=== PATIENT | male | born 1955 | race African-American/Black ===

== ENCOUNTER → 2018-11-24 | Outpatient (CLI) | payer MEDICAID | LOC: M OUTALCOH 08:22 | PROVIDERS: ATTEND Psychiatry & Neurology Psychiatry | DX: F14.10 Cocaine abuse, uncomplicated (principal) ==

== ENCOUNTER 2018-12-12 13:00 | Outpatient (RCR) | payer MEDICAID | END 2018-12-14 | LOC: M OUTALCOH 13:00 | PROVIDERS: ATTEND Psychiatry & Neurology Psychiatry | DX: F14.20 Cocaine dependence, uncomplicated (principal); Z72.0 Tobacco use ==

== ENCOUNTER → 2019-01-13 | Outpatient (RCR) | payer MEDICAID | LOC: M OUTALCOH 12-19 14:10 | PROVIDERS: ATTEND Psychiatry & Neurology Psychiatry | DX: F14.20 Cocaine dependence, uncomplicated (principal); Z72.0 Tobacco use ==

== ENCOUNTER 2019-02-12 16:00 | Outpatient (RCR) | payer MEDICAID | END 2019-02-13 | LOC: M OUTALCOH 16:00 | PROVIDERS: ATTEND Psychiatry & Neurology Psychiatry | DX: F14.20 Cocaine dependence, uncomplicated (principal); Z72.0 Tobacco use ==

== ENCOUNTER 2019-03-13 08:54 | Outpatient (RCR) | payer MEDICAID | END 2019-03-15 | LOC: M OUTALCOH 08:54 | PROVIDERS: ATTEND Psychiatry & Neurology Psychiatry | DX: F14.20 Cocaine dependence, uncomplicated (principal); Z72.0 Tobacco use ==

== ENCOUNTER → 2019-04-15 | Outpatient (RCR) | payer MEDICAID | LOC: M OUTALCOH 03-18 16:33 | PROVIDERS: ATTEND Psychiatry & Neurology Psychiatry | DX: F14.20 Cocaine dependence, uncomplicated (principal); Z72.0 Tobacco use ==

== ENCOUNTER 2021-03-15 07:37 | Observation (INO) | payer MEDICARE, MEDICAID ==
[~2021-03-15] VITALS: Ht 175.3 cm; Wt 82.0 kg
[2021-03-15] MEDS ORDERED: ASPI-1 PO (07:52)
[2021-03-15] MEDS ORDERED: BP Med PO (07:52)
[2021-03-15 08:51] LABS: BASO % 0.4 % (0.0-1.0); EOS % 0.3 % (0.0-3.0); HEMATOCRIT 39.4 % (42.0-52.0); HEMOGLOBIN 13.5 g/dl (13.5-17.5); LYMPH # 1.4 10^3/uL (1.5-5.0); LYMPH % 19.5 % (24.0-44.0); MEAN CORPUSCULAR HEMOGLOBIN 30.9 pg (27.0-33.0); MEAN CORPUSCULAR HGB CONC 34.3 g/dl (32.0-36.5); MEAN CORPUSCULAR VOLUME 90.2 fl (80.0-96.0); MONO # 0.8 10^3/uL (0.0-0.8); MONO % 10.8 % (2.0-8.0); NEUTROPHILS # 4.8 10^3/uL (1.5-8.5); NEUTROPHILS % 68.6 % (36.0-66.0); PLATELET COUNT, AUTOMATED 150 10^3/uL (150-450); RED BLOOD COUNT 4.37 10^6/uL (4.30-6.10)
[2021-03-15 09:20] LABS: INR 1.06; PARTIAL THROMBOPLASTIN TIME 32.6 SECONDS (24.2-38.5)
[2021-03-15 09:23] LABS: ALT/SGPT 11 U/L (12-78); BILIRUBIN,DIRECT < 0.1 MG/DL (0.0-0.2); BILIRUBIN,TOTAL 0.4 MG/DL (0.2-1.0); BLOOD UREA NITROGEN 16 MG/DL (7-18); CALCIUM LEVEL 8.5 MG/DL (8.8-10.2); CARBON DIOXIDE LEVEL 22 MEQ/L (21-32); CHLORIDE LEVEL 111 MEQ/L (98-107); CK-MB VALUE MASS < 1.0 NG/ML (<3.6); CPK CREATINE PHOSPHOKINASE 75 U/L (39-308); CREATININE FOR GFR 1.27 MG/DL (0.70-1.30); GLOMERULAR FILTRATION RATE > 60.0 (>49); GLUCOSE, FASTING 86 MG/DL (70-100); LIPASE 99 U/L (73-393); MB/CK RELATIVE INDEX 1.33 (< OR =4); NT-PRO BNP 1107 PG/ML (<125); POTASSIUM SERUM 3.6 MEQ/L (3.5-5.1); SODIUM LEVEL 143 MEQ/L (136-145); TOTAL PROTEIN 6.8 GM/DL (6.4-8.2); TROPONIN I 0.03 NG/ML (< 0.10)
--- NOTE | 2021-03-15 09:23 | REP ---
INDICATION: leg pain r/o DVT. COMPARISON: None. TECHNIQUE: Bilateral lower extremity duplex venous scanning is performed from the groin to the ankle level. FINDINGS: In the left lower extremity, there is echogenic material and lack of complete compressibility in the left femoral vein from proximal through distal. This is consistent with nonocclusive thrombus. There is deep vein thrombosis also noted in the popliteal vein, nonocclusive. There is lack of complete compressibility in the peroneal veins in the proximal calf on the left.. In the right lower extremity, there is a small amount of nonocclusive thrombosis in the distal popliteal vein and there is lack of complete compressibility in the right peroneal veins in the calf.. Otherwise the deep veins are anechoic and fully compressible on two-dimensional scanning bilaterally. IMPRESSION: Study is positive for bilateral nonocclusive deep vein thrombosis involving the left femoral vein, bilateral popliteal veins, and bilateral peroneal veins. <Electronically signed by Ministerio Shaikh > 03/15/21 [id number]
[2021-03-15] MEDS ORDERED: ISOVUE-370 76% 100ML VIAL As Ordered ONE (09:30)
--- NOTE | 2021-03-15 10:00 | REP ---
INDICATION: pleuritic R chest pain, SOB COMPARISON: None. TECHNIQUE: CT angiography of the chest after the intravenous administration of 75 cc of Isovue 370 attention pulmonary arteries. FINDINGS: There is excellent visualization of the pulmonary arterial vasculature. Abnormal focal filling defects are seen in each right and left main pulmonary artery. Additional abnormal focal filling defects are seen throughout multiple upper and lower lobe pulmonary arteries. No abnormal defect is seen in the main pulmonary artery. There is no saddle embolus. There is no mediastinal or hilar adenopathy. There is a small right pleural effusion. The imaged upper abdomen and imaged osseous structures are within normal limits. Evaluation of the lung stewart shows scattered asymmetric and ground-glass opacities throughout both lungs. Lung stewart are hypoexpanded accentuating the finding. Bilateral curvilinear densities are also seen particularly in the lower lobe regions. IMPRESSION: 1. Pulmonary emboli as described above. This was discussed with Dr. Dillon Florez at the time of this exam. 2. Lung field findings as described above. Patchy pneumonia cannot be ruled out. There are no priors comparison. Follow-up is recommended. Critical Findings: Large bilateral pulmonary emboli The critical information above was relayed directly by me by telephone to DILLON FLOREZ on 03/15/2021 at 9:56 am with readback verification. <Electronically signed by Arian Winkler > 03/15/21 [id number]
[2021-03-15] MEDS ORDERED: HEPARIN SOD (PORCINE) 5000UNITS/ML 1ML VIAL/SYRINGE IV ONE (10:05)
[2021-03-15] MEDS ORDERED: HEPARIN DRIP 25,000 UNITS in IV 1 EA IV SCH (10:05)
[2021-03-15] MEDS ORDERED: LISI10TA22 PO (11:52)
[2021-03-15] MEDS ORDERED: ASPI1TAB8 PO (11:52)
[2021-03-15] MEDS ORDERED: AMLO1TAB25 PO (11:52)
[2021-03-15] MEDS: APIXABAN 5 MG TAB (ELIQUIS) PO SCH ×2 (12:46→20:02)
[2021-03-15 13:11] VITALS: BP 150/78
[2021-03-15 13:26] LABS: AMPHETAMINES LEVEL URINE NEGATIVE (NEGATIVE); BARBITURATES URINE NEGATIVE (NEGATIVE); BENZODIAZEPINES URINE NEGATIVE (NEGATIVE); CANNABINOIDS URINE NEGATIVE (NEGATIVE); COCAINE METABOLITE URINE POSITIVE (NEGATIVE); METHADONE URINE NEGATIVE (NEGATIVE); OPIATES URINE NEGATIVE (NEGATIVE); PHENCYCLIDINE URINE NEGATIVE (NEGATIVE)
--- NOTE | 2021-03-15 16:18 | HPEPDOC ---
General Date of Admission Mar 15, 2021 at 12:06 Date of Service: Mar 15, 2021 Chief Complaint The patient is a 65-year-old male admitted with a reason for visit of Pulmonary Embolism. History of Present Illness 67 y/o M came to ER c/o worsening left thigh area pain, mild shortness of breath and mild intermittent chest pain for past 5 days, no specific aggravating or relieving factor. In ER pt was found with vitals of BP 191/91 that improved after getting home medication Amlodipine/lisinopril to 161/98, HR 78, RR 16, SpO2- 90% on RA; EKG- LBBB, Troponin x 1 negative, CTA- PE, US lower extremities- b/l DVT; pt was started on iv heparin gtt. Hospitalist service was consulted to admit the patient for further management. Pt was seen and examined at bedside in ER. Pt was resting comfortably in bed. Pt c/o mild left thigh area pain. Home Medications Scheduled Amlodipine Besylate (Amlodipine Besylate) 10 Mg Tablet, 10 MG PO DAILY, (Reported) Aspirin (Aspirin EC) 81 Mg Tablet.dr, 81 MG PO DAILY, (Reported) Lisinopril (Lisinopril) 10 Mg Tablet, 10 MG PO DAILY, (Reported) Allergies Coded Allergies: No Known Allergies (Unverified , 03/15/21) Past Medical History Medical History HTN, GERD Surgical History multiple left foot surgery, s/p left 5th toe amputation Family History Father at age 89- no health issues Mother at age 98 due to complications of unknown cancer. Social History * Smoker: current smoker Alcohol: occationally occasionally snorts cocaine A-FIB/CHADSVASC A-FIB History Current/History of A-Fib/PAF?: No Current PO Anticoag Therapy: No Review of Systems Constitutional: Denies: Fever Eyes: Denies: Vision change ENT: Denies: Head Aches Skin: Denies: Lesions Pulmonary: Denies: Cough Cardiovascular: Denies: Palpitations Gastrointestinal: Denies: Nausea Genitourinary: Denies: Frequency Hematologic: Denies: Bleeding Excessively Endocrine: Denies: Polyuria Musculoskeletal: Denies: Back Pain Neurological: Denies: Numbness Psych: Denies: Anxiety Physical Examination General Exam: Positive: Alert, Cooperative, No Acute Distress Eye Exam: Positive: PERRLA ENT Exam: Positive: Atraumatic, Mucous membr. moist/pink Neck Exam: Positive: Supple Chest Exam: Positive: Clear to auscultation Heart Exam: Positive: Rate Normal Abdomen Exam: Positive: Normal bowel sounds Extremity Exam: Negative: Edema Skin Exam: Negative: Rash Neuro Exam: Positive: Normal Gait, Normal Speech, Strength at 5/5 X4 ext Psych Exam: Positive: Mood NL Vital Signs Vital Signs Date Time Temp Pulse Resp B/P (MAP) Pulse Ox O2 Delivery O2 Flow Rate FiO2 03/15/21 12:47 98.8 74 22 161/98 (119) 92 Nasal Cannula 2.0 Laboratory Data Labs 24H Laboratory Tests 2 03/15/21 08:21: Immature Granulocyte % (Auto) 0.4, Neutrophils (%) (Auto) 68.6H, Lymphocytes (%) (Auto) 19.5L, Monocytes (%) (Auto) 10.8H, Eosinophils (%) (Auto) 0.3, Basophils (%) (Auto) 0.4, Neutrophils # (Auto) 4.8, Lymphocytes # (Auto) 1.4L, Monocytes # (Auto) 0.8, Eosinophils # (Auto) 0.0, Basophils # (Auto) 0.0, Nucleated Red Blood Cells % (auto) 0.0, Prothrombin Time 14.0, Prothromb Time International Ratio 1.06, Activated Partial Thromboplast Time 32.6, Anion Gap 10, Glomerular Filtration Rate > 60.0, Calcium Level 8.5L, Total Bilirubin 0.4, Direct Bilirubin < 0.1, Aspartate Amino Transf (AST/SGOT) 12, Alanine Aminotransferase (ALT/SGPT) 11L, Alkaline Phosphatase 98, Total Creatine Kinase 75, Creatine Kinase MB < 1.0, Creatine Kinase MB Relative Index 1.33, Troponin I 0.03, NT -Pro-B-Type Natriuretic Peptide 1107H, Total Protein 6.8, Albumin 3.0L, Albumin/Globulin Ratio 0.8, Lipase 99, Thyroid Stimulating Hormone (TSH) 1.490 03/15/21 12:45: Urine Opiates Screen NEGATIVE, Urine Methadone Screen NEGATIVE, Urine Barbiturates Screen NEGATIVE, Urine Phencyclidine Screen NEGATIVE, Urine Amphetamines Screen NEGATIVE, Urine Benzodiazepines Screen NEGATIVE, Urine Cocaine Metabolite Screen POSITIVEH, Urine Cannabinoids Screen NEGATIVE 03/15/21 13:04: Troponin I 0.05# CBC/BMP Laboratory Tests 03/15/21 08:21 Microbiology Microbiology 03/15/21 Respiratory Virus Panel (PCR) ([facility]) - Final, Complete Assessment/Plan 80 y/o M initially came to ER c/o mild shortness of breath, intermittent chest pain and left thigh area pain, found to have PE and DVT. Labs and imaging studies reviewed US- bilateral nonocclusive deep vein thrombosis involving the left femoral vein, bilateral popliteal veins, and bilateral peroneal veins. Impression- PE and b/l lower extremities DVT Plan 1. PE and b/l lower extremities DVT CTA did not show saddle PE will start on PO Eliquis 10 mg bid will f/u ECHO o/p hematology eval 2. HTN pt stated that his BP usually run high but could not tell us the exact numbers will continue home medication Amlodipine increased the dose of home medication Lisinopril to 20 mg once daily will monitor BP closely 3. Cocaine abuse pt was counselled about substance abuse telemetry will f/u repeat troponin in view of c/o intermittent chest pain pt stated that he snorted cocaine few days ago. Most probably chest pain was due to PE 4. h/o GERD home meds 5. Abnormal EKG LBBB no prior EKG available to compare no sign and symptoms suggestive of ACS will f/u repeat troponin telemetry o/p cardiology referral as per PMD discretion Plan / VTE VTE Prophylaxis Ordered?: Yes JAYNA MARTINEZ MD Mar 15, 2021 16:18
[2021-03-15] MEDS: ACETAMINOPHEN TAB 650MG DOSE (2X325MG) PO PRN (20:03)
[2021-03-15 22:00] VITALS: BP 135/73
[2021-03-16 06:00] VITALS: BP 151/78
[2021-03-16 06:04] LABS: HEMATOCRIT 39.7 % (42.0-52.0); HEMOGLOBIN 13.5 g/dl (13.5-17.5); MEAN CORPUSCULAR HEMOGLOBIN 30.8 pg (27.0-33.0); MEAN CORPUSCULAR VOLUME 90.6 fl (80.0-96.0); PLATELET COUNT, AUTOMATED 156 10^3/uL (150-450); RED BLOOD COUNT 4.38 10^6/uL (4.30-6.10); WHITE BLOOD COUNT 7.1 10^3/uL (4.0-10.0)
[2021-03-16 06:32] LABS: ALBUMIN 2.9 GM/DL (3.2-5.2); ALT/SGPT 13 U/L (12-78); BILIRUBIN,TOTAL 0.6 MG/DL (0.2-1.0); BLOOD UREA NITROGEN 17 MG/DL (7-18); CALCIUM LEVEL 8.5 MG/DL (8.8-10.2); CARBON DIOXIDE LEVEL 28 MEQ/L (21-32); CHLORIDE LEVEL 110 MEQ/L (98-107); CREATININE FOR GFR 1.45 MG/DL (0.70-1.30); GLOMERULAR FILTRATION RATE > 60.0 (>49); GLUCOSE, FASTING 88 MG/DL (70-100); POTASSIUM SERUM 3.6 MEQ/L (3.5-5.1); SODIUM LEVEL 144 MEQ/L (136-145); TOTAL PROTEIN 6.7 GM/DL (6.4-8.2)
[2021-03-16] MEDS: ASPIRIN 81MG ENTERIC TABLET PO SCH (09:27)
[2021-03-16] MEDS: APIXABAN 5 MG TAB (ELIQUIS) PO SCH ×2 (09:27→19:56)
--- NOTE | 2021-03-16 11:38 | IPNPDOC ---
Subjective Date Seen The patient was seen on 03/16/21. Subjective Chief Complaint/HPI Denies any SOB at rest or ambulation to the bathroom. Still has some soreness int he left thigh. Objective Physical Examination General Exam: Positive: Alert, Cooperative, No Acute Distress Eye Exam: Positive: PERRLA, Conjunctiva & lids normal ENT Exam: Positive: Atraumatic, Mucous membr. moist/pink Neck Exam: Positive: Supple Chest Exam: Positive: Clear to auscultation, Normal air movement Heart Exam: Positive: Rate Normal, Regular Rhythm, Normal S1, Normal S2; Negative: Murmurs, Rubs Telemetry: Positive: No significant arrhythmia Abdomen Exam: Positive: Normal bowel sounds, Soft; Negative: Tenderness, Hepatospenomegaly Extremity Exam: Positive: Clubbing, Cyanosis, Edema, Tenderness (thigh) Skin Exam: Negative: Rash Neuro Exam: Positive: Normal Gait, Normal Speech, Strength at 5/5 X4 ext Psych Exam: Positive: Mood NL, Memory Intact, Oriented x 3 Assessment /Plan Assessment 80 y/o M came to ER c/o mild shortness of breath, intermittent chest pain and left thigh area pain, found to have Pulmonary embolism and bilateral DVT. CTA of chest showed . Abnormal focal filling defects are seen in each right and left main pulmonary artery. Additional abnormal focal filling defects are seen throughout multiple upper and lower lobe pulmonary arteries. No abnormal defect is seen in the main pulmonary artery. There is no saddle embolus. US- bilateral nonocclusive deep vein thrombosis involving the left femoral vein, bilateral popliteal veins, and bilateral peroneal veins. PE and b/l lower extremities DVT Eliquis 10 mg bid, stop ASA Hypercoagulable work up ordered. will f/u ECHO Bed rest with bathroom privileges. HTN continue amlodipine and lisinopril at home dosages. Cocaine abuse pt was counselled about substance abuse pt stated that he snorted cocaine few days ago. Most probably chest pain was due to PE cardiac enzymes negative. GERD home meds Abnormal EKG LBBB no prior EKG available to compare no sign and symptoms suggestive of ACS cardiac enzymes negative Plan/VTE VTE Prophylaxis Ordered?: Yes VS, I&O, 24H, Fishbone Vital Signs/I&O Vital Signs Date Time Temp Pulse Resp B/P (MAP) Pulse Ox O2 Delivery O2 Flow Rate FiO2 03/16/21 09:27 67 151/78 03/16/21 06:00 97.4 17 92 Nasal Cannula 2.0 I&O- Last 24 Hours up to 6 AM 03/16/21 06:00 Intake Total 1439.5 ml Output Total 0 ml Balance 1439.5 ml Laboratory Data 24H LABS Laboratory Tests 2 03/15/21 12:45: Urine Opiates Screen NEGATIVE, Urine Methadone Screen NEGATIVE, Urine Barbiturates Screen NEGATIVE, Urine Phencyclidine Screen NEGATIVE, Urine Amphetamines Screen NEGATIVE, Urine Benzodiazepines Screen NEGATIVE, Urine Cocaine Metabolite Screen POSITIVEH, Urine Cannabinoids Screen NEGATIVE 03/15/21 13:04: Troponin I 0.05# 03/16/21 05:47: Nucleated Red Blood Cells % (auto) 0.0, Anion Gap 6L, Glomerular Filtration Rate > 60.0, Calcium Level 8.5L, Total Bilirubin 0.6, Aspartate Amino Transf (AST/SGOT) 12, Alanine Aminotransferase (ALT/SGPT) 13, Alkaline Phosphatase 94, Total Protein 6.7, Albumin 2.9L, Albumin/Globulin Ratio 0.8 CBC/BMP Laboratory Tests 03/16/21 05:47 Microbiology Microbiology 03/15/21 Respiratory Virus Panel (PCR) ([facility]) - Final, Complete NANCY MCDONALD MD Mar 16, 2021 11:38
[2021-03-16 14:00] VITALS: BP 173/99
[2021-03-16 15:57] VITALS: BP 142/78
[2021-03-16] MEDS: ACETAMINOPHEN TAB 650MG DOSE (2X325MG) PO PRN (19:57)
[2021-03-16 22:00] VITALS: BP 131/75
--- NOTE | 2021-03-17 00:18 | ECHO ---
ECHOCARDIOGRAM DATE OF PROCEDURE: 03/16/2021 Age: 65 Gender: Male Height: 69 inches Weight: 180 pounds Body surface area: 1.98 m2 PATIENT LOCATION: [facility] Room 4210 REFERRING PHYSICIAN: Dr. Kin Zelaya INDICATION: Dyspnea MEASUREMENTS: 2D Measurements: RV 4.2 cm LV 5.0 cm Septum 1.3 cm Posterior wall 1.3 cm Aortic Root 3.6 cm LA 3.7 cm LVEF 45% Doppler Measurements: AV 2.25 m/s LVOT - 0.99 m/s LVOT diameter 2.1 cm Mean AV gradient 11 mmHg Dimensionless index 0.5 MV-E 81, A 69, EA ratio 1.2 Early mitral deceleration time 277 msec E prime medial 5.3, A prime medial 8, E prime lateral 5.2 Average E/E prime ratio 15.4/PCWP 21 mmHg PV 1.0 msec Pulmonary artery acceleration time 79 msec RVSP 49 mmHg IVC 1.9 cm COMMENTS: Normal sinus rhythm with left bundle branch block. Occasional PACs with one observed atrial triplet. M-mode and 2-dimensional echocardiography was performed with pulse, continuous wave, color flow, and tissue Doppler studies. Mild symmetrical left ventricular hypertrophy with septal paradoxical motion and apical akinesis related to left bundle branch block. At least mild impairment of global systolic function. Left atrial size upper limits of normal with grade 2 LV diastolic dysfunction and elevated estimated mean left atrial pressure. Mildly dilated right heart chambers with no wall motion and Doppler evidence of at least moderate pulmonary hypertension. Normal IVC size and collapse against an elevated central venous pressure. Normal aortic diameters. Moderate asymmetrical thickening of the aortic valve three equal size cusps with fairly localized nodular thickening of the left coronary cusp. Could not rule out a sessile vegetation with certainty. No more than borderline aortic stenosis, but mild insufficiency. Slightly thickened mitral valvular apparatus with normal leaflet excursion and no posterior systolic buckling. Mild insufficiency. Normal appearing tricuspid valve with mild to moderate insufficiency. No separate intracardiac mass or pericardial effusion. It would be prudent to consider a complete blood count, sediment rate and two sets of blood cultures by 12 hours to help rule out endocarditis.
--- NOTE | 2021-03-17 05:37 | ECGEPIP ---
[facility] - ED Test Date: 2021-03-15 Pat Name: SWETHA HEART Department: Room: - Gender: Male It Systems Administrator: LR : [id number] Requested By: DILLON Tobar Order Number: [id number] Reading MD: Néstor Hubbard Measurements Intervals War Rate: 99 P: [place]: QRS: -2 QRSD: 152 T: 189 QT: 320 QTc: 410 Interpretive Statements Sinus rhythm with frequent premature supraventricular complexes with atrial triplets Left bundle branch block NO PRIORS FOR COMPARISON Electronically Signed on 03-17-2021 5:37:16 EDT by Néstor Hubbard
[2021-03-17 06:00] VITALS: BP 123/85
[2021-03-17] MEDS: ASPIRIN 81MG ENTERIC TABLET PO SCH (09:06)
[2021-03-17] MEDS: APIXABAN 5 MG TAB (ELIQUIS) PO SCH (09:07)
[2021-03-17 09:09] VITALS: BP 136/69
[2021-03-17 10:30] LABS: BASO % 0.3 % (0.0-1.0); EOS % 0.5 % (0.0-3.0); HEMATOCRIT 40.8 % (42.0-52.0); HEMOGLOBIN 13.9 g/dl (13.5-17.5); LYMPH # 1.4 10^3/uL (1.5-5.0); LYMPH % 21.1 % (24.0-44.0); MEAN CORPUSCULAR HEMOGLOBIN 30.9 pg (27.0-33.0); MEAN CORPUSCULAR HGB CONC 34.1 g/dl (32.0-36.5); MEAN CORPUSCULAR VOLUME 90.7 fl (80.0-96.0); MONO # 0.5 10^3/uL (0.0-0.8); MONO % 7.6 % (2.0-8.0); NEUTROPHILS # 4.6 10^3/uL (1.5-8.5); NEUTROPHILS % 70.3 % (36.0-66.0); PLATELET COUNT, AUTOMATED 182 10^3/uL (150-450); WHITE BLOOD COUNT 6.6 10^3/uL (4.0-10.0)
[2021-03-17 10:53] LABS: BLOOD UREA NITROGEN 16 MG/DL (7-18); CARBON DIOXIDE LEVEL 26 MEQ/L (21-32); CHLORIDE LEVEL 109 MEQ/L (98-107); CREATININE FOR GFR 1.31 MG/DL (0.70-1.30); GLOMERULAR FILTRATION RATE > 60.0 (>49); GLUCOSE, FASTING 112 MG/DL (70-100); POTASSIUM SERUM 3.7 MEQ/L (3.5-5.1); SODIUM LEVEL 145 MEQ/L (136-145)
[2021-03-17] MEDS ORDERED: ELIQ5TAB PO (12:42)
--- NOTE | 2021-03-17 14:07 | IPNPDOC ---
Subjective Date Seen The patient was seen on 03/17/21. Subjective Chief Complaint/HPI No complaints this morning. Spoke with PMD Dr Dhillon and apprised him about the echo results and faxed over the echo to his office. He is going to follow up on the hypercoagulable work up. Objective Physical Examination General Exam: Positive: Alert, Cooperative, No Acute Distress Eye Exam: Positive: PERRLA, Conjunctiva & lids normal ENT Exam: Positive: Atraumatic, Mucous membr. moist/pink Neck Exam: Positive: Supple Chest Exam: Positive: Clear to auscultation, Normal air movement Heart Exam: Positive: Rate Normal, Regular Rhythm, Normal S1, Normal S2; Negative: Murmurs, Rubs Telemetry: Positive: No significant arrhythmia Abdomen Exam: Positive: Normal bowel sounds, Soft; Negative: Tenderness, Hepatospenomegaly Extremity Exam: Positive: Clubbing, Cyanosis, Edema, Tenderness (thigh) Skin Exam: Negative: Rash Neuro Exam: Positive: Normal Gait, Normal Speech, Strength at 5/5 X4 ext Psych Exam: Positive: Mood NL, Memory Intact, Oriented x 3 Assessment /Plan Assessment 65 y/o M came to ER c/o mild shortness of breath, intermittent chest pain and left thigh area pain, found to have Pulmonary embolism and bilateral DVT. CTA of chest showed Abnormal focal filling defects are seen in each right and left main pulmonary artery. Additional abnormal focal filling defects are seen throughout multiple upper and lower lobe pulmonary arteries. No abnormal defect is seen in the main pulmonary artery. There is no saddle embolus. US- bilateral nonocclusive deep vein thrombosis involving the left femoral vein, bilateral popliteal veins, and bilateral peroneal veins. PE and b/l lower extremities DVT Eliquis 10 mg bid, stop ASA Hypercoagulable work up ordered. Systolic CHF with EF of 45% compensated at this time. Echo faxed over to PMD Dr Dhillon who will send him to the [place] it service delivery manager. 2D Measurements: RV 4.2 cm LV 5.0 cm Septum 1.3 cm Posterior wall 1.3 cm Aortic Root 3.6 cm LA 3.7 cm LVEF 45% Doppler Measurements: AV 2.25 m/s LVOT - 0.99 m/s LVOT diameter 2.1 cm Mean AV gradient 11 mmHg Dimensionless index 0.5 MV-E 81, A 69, EA ratio 1.2 Early mitral deceleration time 277 msec E prime medial 5.3, A prime medial 8, E prime lateral 5.2 Average E/E prime ratio 15.4/PCWP 21 mmHg PV 1.0 msec Pulmonary artery acceleration time 79 msec RVSP 49 mmHg IVC 1.9 cm COMMENTS: Normal sinus rhythm with left bundle branch block. Occasional PACs with one observed atrial triplet. M-mode and 2-dimensional echocardiography was performed with pulse, continuous wave, color flow, and tissue Doppler studies. Mild symmetrical left ventricular hypertrophy with septal paradoxical motion and apical akinesis related to left bundle branch block. At least mild impairment of global systolic function. Left atrial size upper limits of normal with grade 2 LV diastolic dysfunction and elevated estimated mean left atrial pressure. Mildly dilated right heart chambers with no wall motion and Doppler evidence of at least moderate pulmonary hypertension. Normal IVC size and collapse against an elevated central venous pressure. Normal aortic diameters. Moderate asymmetrical thickening of the aortic valve three equal size cusps with fairly localized nodular thickening of the left coronary cusp. Could not rule out a sessile vegetation with certainty. No more than borderline aortic stenosis, but mild insufficiency. Slightly thickened mitral valvular apparatus with normal leaflet excursion and no posterior systolic buckling. Mild insufficiency. Normal appearing tricuspid valve with mild to moderate insufficiency. No separate intracardiac mass or pericardial effusion. It would be prudent to consider a complete blood count, sediment rate and two sets of blood cultures by 12 hours to help rule out endocarditis. As per the it service delivery manager's recommendation blood culture was ordered. will follow up HTN with [facility]. continue amlodipine and lisinopril at home dosages. Cocaine abuse / cocaine related cornary spasm with negative cardiac cath. pt was counselled about substance abuse pt stated that he snorted cocaine few days ago. Most probably chest pain was due to PE cardiac enzymes negative. GERD home meds Abnormal EKG LBBB no prior EKG available to compare no sign and symptoms suggestive of ACS cardiac enzymes negative Dispo: Home. Plan/VTE VTE Prophylaxis Ordered?: Yes VS, I&O, 24H, Fishbone Vital Signs/I&O Vital Signs Date Time Temp Pulse Resp B/P (MAP) Pulse Ox O2 Delivery O2 Flow Rate FiO2 03/17/21 09:09 80 136/69 03/17/21 06:00 97.9 17 93 Room Air 03/16/21 22:00 1.0 I&O- Last 24 Hours up to 6 AM 03/17/21 05:59 Intake Total 1587 ml Balance 1587 ml Laboratory Data 24H LABS Laboratory Tests 2 03/17/21 09:54: Immature Granulocyte % (Auto) 0.2, Neutrophils (%) (Auto) 70.3H, Lymphocytes (%) (Auto) 21.1L, Monocytes (%) (Auto) 7.6, Eosinophils (%) (Auto) 0.5, Basophils (%) (Auto) 0.3, Neutrophils # (Auto) 4.6, Lymphocytes # (Auto) 1.4L, Monocytes # (Auto) 0.5, Eosinophils # (Auto) 0.0, Basophils # (Auto) 0.0, Nucleated Red Blood Cells % (auto) 0.0, Anion Gap 10, Glomerular Filtration Rate > 60.0, Calcium Level 9.0 CBC/BMP Laboratory Tests 03/17/21 09:54 Microbiology Microbiology 03/17/21 Blood Culture, Received Pending 03/17/21 Blood Culture, Received Pending 03/15/21 Respiratory Virus Panel (PCR) ([facility]) - Final, Complete NANCY MCDONALD MD Mar 17, 2021 14:07
[2021-03-18] MEDS ORDERED: ELIQ5TAB PO (11:44)
[2021-03-22 09:56] LABS: DRVV SCREEN 115.8 SEC
[2021-03-22 10:20] LABS: DRVV CONFIRM 75.3 SEC; LUPUS CONFIRM RATIO 2.1
[2021-03-22 10:25] LABS: NORMALIZED RATIO 1.43 (0.00-1.20)
[2021-03-22 11:08] LABS: ANCA-ATYPICAL <1:20 titer (Neg:<1:20); ANTI THROMBIN 3 ANTIGEN IMMUNO 93 % (72-124); ANTI THROMBIN 3 FUNCT ACTIVITY 146 % (75-135); ANTINUCLEAR ANTIBODIES DIRECT Negative (Negative); CARDIOLIPIN IGA ANTIBODY <9 APL U/mL (0-11); CARDIOLIPIN IGG ANTIBODY <9 GPL U/mL (0-14); CARDIOLIPIN IGM ANTIBODY <9 MPL U/mL (0-12); CYTOPLASMIC NEUTROP AB ANCA-C <1:20 titer (Neg:<1:20); HOMOCYST(E)INE SERUM 12.2 umol/L (0.0-17.2); PERINUCLEAR AB ANCA-P <1:20 titer (Neg:<1:20); PROTEIN C ANTIGEN 72 % (60-150); PROTEIN S ANTIGEN FREE 158 % (57-157); PROTEIN S ANTIGEN TOTAL 105 % (60-150); SJOGREN'S ANTI SS-A <0.2 AI (0.0-0.9); SJOGREN'S ANTI SS-B <0.2 AI (0.0-0.9)
[2021-03-25 15:09] LABS: HEXAGONAL PHASE PHOSPHOLIPID 0 sec (0-11)
== END 2021-03-17 13:59 | disposition home or self-care (01) ==
LOC: M ED 07:37 → M ED INP 12:06 → ENRESERV 12:08 → M MSPAV 13:11
PROVIDERS: ADMIT Internal Medicine; ATTEND Internal Medicine
DX: I26.99 Other pulmonary embolism without acute cor pulmonale (principal); I82.403 Acute embolism and thrombosis of unspecified deep veins of lower extremity, bilateral; I50.20 Unspecified systolic (congestive) heart failure; K21.9 Gastro-esophageal reflux disease without esophagitis; I11.9 Hypertensive heart disease without heart failure; R94.31 Abnormal electrocardiogram [ECG] [EKG]; R06.02 Shortness of breath; R07.9 Chest pain, unspecified; F17.218 Nicotine dependence, cigarettes, with other nicotine-induced disorders; F14.10 Cocaine abuse, uncomplicated; Z79.01 Long term (current) use of anticoagulants; Z79.899 Other long term (current) drug therapy
CPT/HCPCS: 36415; 71275; 80048; 80053; 80076; 80307; 81240; 81241; 82550; 82553; 83090; 83690; 83880; 84443; 84484; 85025; 85027; 85300; 85301; 85302; 85305; 85306; 85598; 85610; 85613; 85730; 86038; 86147; 86235; 86256; 87040; 87798; 93005; 93041; 93306; 93970; 94760; 96361; 96374; 99285; G0378; J1644; Q9967

== ENCOUNTER 2022-06-28 16:15 | Emergency (ER) | payer MEDICARE, MEDICAID ==
[~2022-06-28] VITALS: Ht 175.3 cm; Wt 82.2 kg
[~2022-06-28 16:15] MED LIST: AMLO1TAB25 PO; ASPI-1 PO; ASPI1TAB8 PO; BP Med PO; ELIQ5TAB PO; LISI10TA22 PO
[2022-06-28 16:16] VITALS: BP 146/74
== END 2022-06-28 17:30 | disposition left against medical advice (07) ==
LOC: M ED 16:15
DX: Z53.21 Procedure and treatment not carried out due to patient leaving prior to being seen by health care provider (principal)

== ENCOUNTER 2022-09-21 08:29 | Emergency (ER) | payer MEDICARE, MEDICAID ==
[~2022-09-21] VITALS: Ht 182.9 cm; Wt 85.1 kg
[2022-09-21 08:30] VITALS: BP 123/65
== END 2022-09-21 12:01 | disposition left against medical advice (07) ==
LOC: M ED 08:29
DX: Z53.21 Procedure and treatment not carried out due to patient leaving prior to being seen by health care provider (principal)

== ENCOUNTER 2022-10-02 07:45 | Emergency (ER) | payer MEDICARE, MEDICAID ==
[~2022-10-02] VITALS: Ht 182.9 cm; Wt 85.9 kg
[2022-10-02 09:32] LABS: BASO # 0.1 10^3/uL (0.0-0.2); BASO % 0.8 % (0.0-1.0); EOS # 0.3 10^3/uL (0.0-0.5); EOS % 4.4 % (0.0-3.0); HEMATOCRIT 42.4 % (42.0-52.0); HEMOGLOBIN 13.9 g/dl (13.5-17.5); LYMPH % 32.6 % (24.0-44.0); MEAN CORPUSCULAR HEMOGLOBIN 30.2 pg (27.0-33.0); MEAN CORPUSCULAR HGB CONC 32.8 g/dl (32.0-36.5); MONO # 0.6 10^3/uL (0.0-0.8); MONO % 10.2 % (2.0-8.0); NEUTROPHILS # 3.2 10^3/uL (1.5-8.5); NEUTROPHILS % 51.8 % (36.0-66.0); PLATELET COUNT, AUTOMATED 201 10^3/uL (150-450); RED BLOOD COUNT 4.61 10^6/uL (4.30-6.10); WHITE BLOOD COUNT 6.2 10^3/uL (4.0-10.0)
[2022-10-02 09:43] LABS: INR 0.96
[2022-10-02 09:56] LABS: BLOOD UREA NITROGEN 13 MG/DL (9-23); CALCIUM LEVEL 9.2 MG/DL (8.3-10.6); CARBON DIOXIDE LEVEL 27 MMOL/L (20-31); CHLORIDE LEVEL 107 MMOL/L (98-107); CREATININE FOR GFR 1.32 MG/DL (0.70-1.30); GLOMERULAR FILTRATION RATE > 60.0 (>49); GLUCOSE, FASTING 88 MG/DL (74-106); POTASSIUM SERUM 5.9 MMOL/L (3.5-5.1); SODIUM LEVEL 139 MMOL/L (136-145)
[2022-10-02 10:33] LABS: ERYTHROCYTE SEDIMENTATION RATE 46 mm/hr (0-20)
[2022-10-02] MEDS ORDERED: ISOVUE-370 76% 100ML VIAL As Ordered ONE (10:54)
[2022-10-02] MEDS ORDERED: ELIQ5TAB PO (11:24)
[2022-10-02 11:36] VITALS: BP 167/79
== END 2022-10-02 11:43 | disposition home or self-care (01) ==
LOC: M ED 07:45
DX: I82.4Z2 Acute embolism and thrombosis of unspecified deep veins of left distal lower extremity (principal); I10 Essential (primary) hypertension; Z87.891 Personal history of nicotine dependence; Z79.899 Other long term (current) drug therapy
CPT/HCPCS: 71275; 80048; 85025; 85610; 85652; 86140; 93971; 99284; Q9967

== ENCOUNTER 2024-10-16 15:37 | Inpatient (IN) | payer MEDICARE, MEDICAID ==
[~2024-10-16] VITALS: Ht 182.9 cm; Wt 82.1 kg
[2024-10-16 16:22] LABS: BASO % 0.3 % (0.0-1.0); EOS % 0.5 % (0.0-3.0); HEMATOCRIT 45.6 % (42.0-52.0); HEMOGLOBIN 15.8 g/dl (13.5-17.5); LYMPH # 1.5 10^3/uL (1.5-5.0); LYMPH % 16.9 % (24.0-44.0); MEAN CORPUSCULAR HEMOGLOBIN 31.6 pg (27.0-33.0); MEAN CORPUSCULAR HGB CONC 34.6 g/dl (32.0-36.5); MEAN CORPUSCULAR VOLUME 91.2 fl (80.0-96.0); MONO # 0.7 10^3/uL (0.0-0.8); MONO % 8.1 % (2.0-8.0); NEUTROPHILS # 6.4 10^3/uL (1.5-8.5); NEUTROPHILS % 73.9 % (36.0-66.0); PLATELET COUNT, AUTOMATED 229 10^3/uL (150-450); WHITE BLOOD COUNT 8.6 10^3/uL (4.0-10.0)
[2024-10-16 16:35] VITALS: TEMP 98.6
[2024-10-16 16:40] LABS: INR 1.19; PARTIAL THROMBOPLASTIN TIME 29.5 SECONDS (24.8-34.2); PROTHROMBIN TIME 15.4 SECONDS (12.5-14.5)
[2024-10-16 16:45] LABS: ABG BASE EXCESS -6.7 (-2.0-2.0); ABG HCO3 17.4 MMOL/L (22.0-26.0); ABG O2 SATURATION 93.6 % (95.0-99.0); ABG PARTIAL PRESSURE CO2 31.1 mmHg (35.0-45.0); ABG PARTIAL PRESSURE O2 76.4 mmHg (75.0-100.0); ABG TOTAL CO2 18.3 MMOL/L (23.0-31.0); ABG pH (ARTERIAL) 7.365 UNITS (7.350-7.450)
[2024-10-16 16:52] LABS: ETHYL ALCOHOL (ETHANOL) < 0.003 % (0.000-0.010); LIPASE 41 U/L (12-53)
[2024-10-16 16:54] LABS: SALICYLATE LEVEL < 3.0 MG/DL (<30)
[2024-10-16 16:55] LABS: ALBUMIN 3.7 G/DL (3.2-5.2); ALKALINE PHOSPHATASE 98 U/L (40-129); ALT/SGPT 21 U/L (7.0-40); AST/SGOT 49 U/L (<34); BILIRUBIN,DIRECT 0.4 MG/DL (<0.4); BILIRUBIN,TOTAL 1.2 MG/DL (0.3-1.2); BLOOD UREA NITROGEN 33 MG/DL (9-23); CARBON DIOXIDE LEVEL 23 MMOL/L (20-31); CHLORIDE LEVEL 111 MMOL/L (98-107); CREATININE FOR GFR 1.88 MG/DL (0.70-1.30); GLUCOSE, FASTING 96 MG/DL (74-106); POTASSIUM SERUM 3.6 MMOL/L (3.5-5.1); SODIUM LEVEL 149 MMOL/L (136-145); TOTAL PROTEIN 7.6 G/DL (5.7-8.2)
[2024-10-16 16:57] LABS: FREE T4 1.41 NG/DL (0.89-1.76); THYROID STIMULATING HORMONE 2.474 uIU/ML (0.55-4.78)
[2024-10-16 17:15] LABS: CPK CREATINE PHOSPHOKINASE 1332 U/L (46-171)
[2024-10-16] MEDS: LIDOCAINE 2% 5ML JELLY UROJET TOP ONE (18:15)
[2024-10-16] MEDS ORDERED: APAP325T4 PO (18:43)
[2024-10-16] MEDS ORDERED: TUMS500C PO (18:43)
[2024-10-16] MEDS ORDERED: ELIQ5TAB PO (18:43)
[2024-10-16] MEDS ORDERED: MELA3TAB7 PO (18:46)
[2024-10-16] MEDS ORDERED: JARD1TAB3 PO (18:46)
[2024-10-16] MEDS ORDERED: VITATAB26 PO (18:46)
[2024-10-16] MEDS ORDERED: FLUT1BLS2 IH (18:47)
[2024-10-16] MEDS ORDERED: METO1TAB32 PO (18:47)
[2024-10-16] MEDS ORDERED: THERTAB52 PO (18:48)
[2024-10-16] MEDS ORDERED: NARC1SPR (18:48)
[2024-10-16] MEDS ORDERED: PRAZ1CAP PO (18:48)
[2024-10-16] MEDS ORDERED: TOPI-21 PO (18:51)
[2024-10-16] MEDS ORDERED: OMEP-173 PO (18:51)
[2024-10-16] MEDS ORDERED: ROSU10TA61 PO (18:51)
[2024-10-16] MEDS ORDERED: TRAZ-252 PO (18:51)
[2024-10-16 18:52] LABS: CK-MB VALUE MASS 4.1 NG/ML (<3.6); MB/CK RELATIVE INDEX 0.37 (< OR =4)
[2024-10-16] MEDS ORDERED: HOME MED LIST COMPLETE! XX SCH (18:55)
[2024-10-16 19:04] LABS: KETONE, URINE AUTO RFX TRACE mg/dL (NEGATIVE); LEUKOCYTE ESTERASE UR AUTO RFX NEGATIVE (NEGATIVE); MUCUS, URINE RFX SMALL (NEGATIVE); NITRITE, URINE AUTO RFX NEGATIVE (NEGATIVE); RBC, URINE AUTO RFX 1 /HPF (0-3); SQUAM EPITHELIAL CELL UR AURFX 0 /HPF (0-6); WBC, URINE AUTO RFX 1 /HPF (0-3)
[2024-10-16 19:26] LABS: AMPHETAMINES LEVEL URINE NEGATIVE (NEGATIVE); BARBITURATES URINE NEGATIVE (NEGATIVE); BENZODIAZEPINES URINE NEGATIVE (NEGATIVE); CANNABINOIDS URINE NEGATIVE (NEGATIVE); METHADONE URINE NEGATIVE (NEGATIVE); OPIATES URINE NEGATIVE (NEGATIVE); PHENCYCLIDINE URINE NEGATIVE (NEGATIVE)
[2024-10-16 19:27] LABS: COCAINE METABOLITE URINE POSITIVE (NEGATIVE)
[2024-10-16] MEDS ORDERED: GLUCAGON INJ 1MG VIAL SC PRN (20:45)
[2024-10-16] MEDS ORDERED: GLUCOSE 4 GM CHEW PO PRN (20:45)
[2024-10-16] MEDS ORDERED: DEXTROSE 50% 50ML SYRINGE IV PRN (20:45)
[2024-10-16] MEDS ORDERED: PILL CUTTER 1 EACH XX PRN (20:55)
[2024-10-16] MEDS: METOPROLOL TART 25 MG TABLET PO SCH (22:21)
[2024-10-16] MEDS: APIXABAN 5 MG TAB (ELIQUIS) PO SCH (22:21)
[2024-10-16] MEDS: LR 1,000 ML IV SCH (22:21)
[2024-10-16] MEDS: PRAZOSIN 1 MG CAP PO SCH (22:22)
[2024-10-17 07:05] LABS: HEMATOCRIT 40.9 % (42.0-52.0); MEAN CORPUSCULAR HEMOGLOBIN 31.2 pg (27.0-33.0); MEAN CORPUSCULAR HGB CONC 34.2 g/dl (32.0-36.5); MEAN CORPUSCULAR VOLUME 91.1 fl (80.0-96.0); PLATELET COUNT, AUTOMATED 210 10^3/uL (150-450); RED BLOOD COUNT 4.49 10^6/uL (4.30-6.10)
[2024-10-17 07:27] LABS: BLOOD UREA NITROGEN 26 MG/DL (9-23); CALCIUM LEVEL 8.6 MG/DL (8.3-10.6); CARBON DIOXIDE LEVEL 23 MMOL/L (20-31); CHLORIDE LEVEL 111 MMOL/L (98-107); CREATININE FOR GFR 1.42 MG/DL (0.70-1.30); GLOMERULAR FILTRATION RATE > 60.0 (>42); GLUCOSE, FASTING 150 MG/DL (74-106); POTASSIUM SERUM 3.3 MMOL/L (3.5-5.1); SODIUM LEVEL 147 MMOL/L (136-145)
[2024-10-17] MEDS: ROSUVASTATIN 10 MG TAB (CRESTOR) PO SCH (08:45)
[2024-10-17] MEDS: TOPIRAMATE (TopAMAX) 100 MG TAB PO SCH (08:45)
[2024-10-17] MEDS: OMEPRAZOLE 20MG CAP PO SCH (08:45)
[2024-10-17] MEDS ORDERED: LACTATED RINGER'S 1000 ML IV ONE (09:45)
[2024-10-17] MEDS: LR 1,000 ML IV SCH (09:57)
[2024-10-17] MEDS: POTASSIUM CHLORIDE 10MEQ SR TABLET PO ONE (10:52)
[2024-10-17] MEDS: ACETAMINOPHEN 325 MG TAB PO PRN (15:57)
[2024-10-17] MEDS: SYMBICORT 80/4.5MCG INHALER 6GM INH SCH (20:00)
[2024-10-17] MEDS: traZODone 50 MG TAB PO SCH (20:57)
[2024-10-18] VITALS (8 sets, daily range): BP systolic 104–123; BP diastolic 53–68; TEMP 97.5–97.9; O2SAT 98–99
[2024-10-18 07:11] LABS: BASO % 0.4 % (0.0-1.0); EOS # 0.1 10^3/uL (0.0-0.5); EOS % 1.6 % (0.0-3.0); HEMOGLOBIN 12.5 g/dl (13.5-17.5); LYMPH # 1.7 10^3/uL (1.5-5.0); LYMPH % 33.6 % (24.0-44.0); MEAN CORPUSCULAR HEMOGLOBIN 30.6 pg (27.0-33.0); MEAN CORPUSCULAR HGB CONC 32.9 g/dl (32.0-36.5); MEAN CORPUSCULAR VOLUME 93.1 fl (80.0-96.0); MONO # 0.4 10^3/uL (0.0-0.8); MONO % 8.5 % (2.0-8.0); NEUTROPHILS # 2.8 10^3/uL (1.5-8.5); NEUTROPHILS % 55.9 % (36.0-66.0); PLATELET COUNT, AUTOMATED 191 10^3/uL (150-450); RED BLOOD COUNT 4.08 10^6/uL (4.30-6.10)
[2024-10-18 07:42] LABS: BLOOD UREA NITROGEN 18 MG/DL (9-23); CALCIUM LEVEL 8.2 MG/DL (8.3-10.6); CARBON DIOXIDE LEVEL 27 MMOL/L (20-31); CHLORIDE LEVEL 115 MMOL/L (98-107); CREATININE FOR GFR 1.33 MG/DL (0.70-1.30); GLOMERULAR FILTRATION RATE > 60.0 (>42); GLUCOSE, FASTING 99 MG/DL (74-106); MAGNESIUM LEVEL 1.6 MG/DL (1.8-2.4); POTASSIUM SERUM 4.1 MMOL/L (3.5-5.1); SODIUM LEVEL 150 MMOL/L (136-145)
[2024-10-18] MEDS: MAGNESIUM OXIDE 400MG TAB (MAG-OX) PO SCH (11:58)
[2024-10-18] MEDS: D5W 1,000 ML IV SCH (11:59)
[2024-10-18] MEDS: MAG SULF 1GM/100ML (MAG RUN) 1 GM in IV 1 EA IV SCH (11:59)
[2024-10-18] MEDS ORDERED: ISOVUE-370 76% 100ML VIAL As Ordered ONE (17:20)
[2024-10-18 19:58] LABS: GLOMERULAR FILTRATION RATE > 60.0 (>42)
[2024-10-18] MEDS: ENOXAPARIN 80MG/0.8ML SYRINGE (J1650 PER 10MG) SC SCH (21:25)
[2024-10-19 00:55] VITALS: BP 108/53; TEMP 97.9; O2SAT 97
[2024-10-19 04:20] VITALS: BP 102/56; TEMP 98.2; O2SAT 97
[2024-10-19 07:52] LABS: BASO % 0.6 % (0.0-1.0); EOS # 0.1 10^3/uL (0.0-0.5); EOS % 1.8 % (0.0-3.0); HEMATOCRIT 36.7 % (42.0-52.0); HEMOGLOBIN 12.4 g/dl (13.5-17.5); LYMPH # 1.9 10^3/uL (1.5-5.0); LYMPH % 37.7 % (24.0-44.0); MEAN CORPUSCULAR HEMOGLOBIN 31.2 pg (27.0-33.0); MEAN CORPUSCULAR HGB CONC 33.8 g/dl (32.0-36.5); MEAN CORPUSCULAR VOLUME 92.4 fl (80.0-96.0); MONO # 0.5 10^3/uL (0.0-0.8); MONO % 10.3 % (2.0-8.0); NEUTROPHILS # 2.5 10^3/uL (1.5-8.5); NEUTROPHILS % 49.4 % (36.0-66.0); PLATELET COUNT, AUTOMATED 207 10^3/uL (150-450); RED BLOOD COUNT 3.97 10^6/uL (4.30-6.10); WHITE BLOOD COUNT 5.1 10^3/uL (4.0-10.0)
[2024-10-19 08:17] LABS: BLOOD UREA NITROGEN 19 MG/DL (9-23); CALCIUM LEVEL 7.8 MG/DL (8.3-10.6); CARBON DIOXIDE LEVEL 22 MMOL/L (20-31); CHLORIDE LEVEL 112 MMOL/L (98-107); CREATININE FOR GFR 1.26 MG/DL (0.70-1.30); GLOMERULAR FILTRATION RATE > 60.0 (>42); GLUCOSE, FASTING 98 MG/DL (74-106); SODIUM LEVEL 144 MMOL/L (136-145)
[2024-10-19 12:00] VITALS: BP 124/58; TEMP 98.2; O2SAT 98
[2024-10-19 19:30] VITALS: BP 138/84; TEMP 97.7; O2SAT 96
[2024-10-19] MEDS: METOPROLOL TART 12.5 MG PER 1/2 TAB PO SCH (21:00)
[2024-10-20 03:40] VITALS: BP 107/55; TEMP 97.2; O2SAT 96
[2024-10-20 06:24] LABS: BASO % 0.6 % (0.0-1.0); EOS # 0.1 10^3/uL (0.0-0.5); HEMATOCRIT 37.1 % (42.0-52.0); HEMOGLOBIN 12.4 g/dl (13.5-17.5); LYMPH # 1.7 10^3/uL (1.5-5.0); MEAN CORPUSCULAR HEMOGLOBIN 30.6 pg (27.0-33.0); MEAN CORPUSCULAR HGB CONC 33.4 g/dl (32.0-36.5); MEAN CORPUSCULAR VOLUME 91.6 fl (80.0-96.0); MONO # 0.5 10^3/uL (0.0-0.8); MONO % 9.1 % (2.0-8.0); NEUTROPHILS % 55.9 % (36.0-66.0); PLATELET COUNT, AUTOMATED 234 10^3/uL (150-450); RED BLOOD COUNT 4.05 10^6/uL (4.30-6.10); WHITE BLOOD COUNT 5.4 10^3/uL (4.0-10.0)
[2024-10-20 06:55] LABS: BLOOD UREA NITROGEN 17 MG/DL (9-23); CALCIUM LEVEL 7.9 MG/DL (8.3-10.6); CARBON DIOXIDE LEVEL 23 MMOL/L (20-31); CHLORIDE LEVEL 113 MMOL/L (98-107); CREATININE FOR GFR 1.32 MG/DL (0.70-1.30); GLOMERULAR FILTRATION RATE > 60.0 (>42); GLUCOSE, FASTING 96 MG/DL (74-106); POTASSIUM SERUM 4.1 MMOL/L (3.5-5.1); SODIUM LEVEL 146 MMOL/L (136-145)
[2024-10-20 09:06] LABS: MAGNESIUM LEVEL 1.9 MG/DL (1.8-2.4)
[2024-10-20 09:35] VITALS: BP 134/73
[2024-10-20] MEDS ORDERED: PRAD150C6 PO (09:47)
[2024-10-20 12:00] VITALS: BP 127/84; TEMP 97.7; O2SAT 95
== END 2024-10-20 14:11 | disposition home or self-care (01) | DRG 922 ==
LOC: EDBD 15:37 → M ED 15:37 → M ED INP 15:38 → OBSVTOIN 10-17 09:44 → M MSPAV 10-18 13:38
PROVIDERS: ADMIT Family Medicine; ATTEND Internal Medicine
PROC: B246ZZZ Ultrasonography of Right and Left Heart (ICD-10-PCS; principal; 2024-10-18)
DX: T68.XXXA Hypothermia, initial encounter (principal); G93.41 Metabolic encephalopathy; I26.99 Other pulmonary embolism without acute cor pulmonale; N17.9 Acute kidney failure, unspecified; E87.20 Acidosis, unspecified; M62.82 Rhabdomyolysis; E87.0 Hyperosmolality and hypernatremia; I13.0 Hypertensive heart and chronic kidney disease with heart failure and stage 1 through stage 4 chronic kidney disease, or unspecified chronic kidney disease; I50.22 Chronic systolic (congestive) heart failure; Z59.00 Homelessness unspecified; I82.502 Chronic embolism and thrombosis of unspecified deep veins of left lower extremity; Z66 Do not resuscitate; K21.9 Gastro-esophageal reflux disease without esophagitis; M10.9 Gout, unspecified; F17.200 Nicotine dependence, unspecified, uncomplicated; I48.91 Unspecified atrial fibrillation; I44.7 Left bundle-branch block, unspecified; N18.9 Chronic kidney disease, unspecified; F14.90 Cocaine use, unspecified, uncomplicated; E87.6 Hypokalemia; E86.0 Dehydration; E83.42 Hypomagnesemia; G47.00 Insomnia, unspecified; E78.5 Hyperlipidemia, unspecified; Z79.01 Long term (current) use of anticoagulants; Z79.84 Long term (current) use of oral hypoglycemic drugs; Z79.899 Other long term (current) drug therapy; Z89.422 Acquired absence of other left toe(s)

== ENCOUNTER 2025-01-02 12:11 | Emergency (ER) | payer MEDICARE, OTHER, SELFPAY ==
[~2025-01-02] VITALS: Ht 175.3 cm; Wt 79.2 kg
[~2025-01-02 12:11] MED LIST changes: +APAP325T4 PO; +FLUT1BLS2 IH; +JARD1TAB3 PO; +MELA3TAB7 PO; +METO1TAB32 PO; +NARC1SPR; +OMEP-173 PO; +PRAD150C6 PO; +PRAZ1CAP PO; +ROSU10TA61 PO; +THERTAB52 PO; +TOPI-21 PO; +TRAZ-252 PO; +TUMS500C PO; +VITATAB26 PO
[2025-01-02 12:52] LABS: BASO % 0.4 % (0.0-1.0); EOS % 0.6 % (0.0-3.0); HEMATOCRIT 38.2 % (42.0-52.0); HEMOGLOBIN 12.6 g/dl (13.5-17.5); LYMPH # 1.5 10^3/uL (1.5-5.0); LYMPH % 27.7 % (24.0-44.0); MEAN CORPUSCULAR HEMOGLOBIN 30.8 pg (27.0-33.0); MEAN CORPUSCULAR VOLUME 93.4 fl (80.0-96.0); MONO # 0.6 10^3/uL (0.0-0.8); MONO % 10.2 % (2.0-8.0); NEUTROPHILS # 3.3 10^3/uL (1.5-8.5); NEUTROPHILS % 61.1 % (36.0-66.0); PLATELET COUNT, AUTOMATED 230 10^3/uL (150-450); RED BLOOD COUNT 4.09 10^6/uL (4.30-6.10); WHITE BLOOD COUNT 5.4 10^3/uL (4.0-10.0)
[2025-01-02 13:00] LABS: INR 1.48; PROTHROMBIN TIME 18.2 SECONDS (12.5-14.5)
[2025-01-02 13:27] LABS: CK-MB VALUE MASS < 1.0 NG/ML (<3.6)
[2025-01-02 13:34] LABS: ALBUMIN 2.7 G/DL (3.2-5.2); ALKALINE PHOSPHATASE 99 U/L (40-129); ALT/SGPT 37 U/L (7.0-40); AST/SGOT 27 U/L (<34); BILIRUBIN,DIRECT 0.2 MG/DL (<0.4); BILIRUBIN,TOTAL 0.6 MG/DL (0.3-1.2); BLOOD UREA NITROGEN 14 MG/DL (9-23); CALCIUM LEVEL 8.4 MG/DL (8.3-10.6); CARBON DIOXIDE LEVEL 25 MMOL/L (20-31); CHLORIDE LEVEL 114 MMOL/L (98-107); CPK CREATINE PHOSPHOKINASE 81 U/L (46-171); CREATININE FOR GFR 1.31 MG/DL (0.70-1.30); GLOMERULAR FILTRATION RATE 58.2 (>42); GLUCOSE, FASTING 93 MG/DL (74-106); MB/CK RELATIVE INDEX 1.23 (< OR =4); POTASSIUM SERUM 3.8 MMOL/L (3.5-5.1); SODIUM LEVEL 150 MMOL/L (136-145); TOTAL PROTEIN 6.5 G/DL (5.7-8.2)
[2025-01-02 14:07] LABS: CK-MB VALUE MASS < 1.0 NG/ML (<3.6)
[2025-01-02 14:08] LABS: CPK CREATINE PHOSPHOKINASE 80 U/L (46-171); MB/CK RELATIVE INDEX 1.25 (< OR =4)
[2025-01-02 14:18] VITALS: TEMP 97.5
[2025-01-02 15:26] VITALS: O2SAT 93
[2025-01-02 15:31] VITALS: BP 160/96
[2025-01-02] MEDS: LevoFLOXacin 750 MG TABLET PO ONE (16:15)
[2025-01-02] MEDS ORDERED: LEVO1TAB40 PO (16:15)
== END 2025-01-02 16:14 | disposition left against medical advice (07) ==
LOC: EDBD 12:11 → M ED 12:11
DX: J18.9 Pneumonia, unspecified organism (principal); Z53.9 Procedure and treatment not carried out, unspecified reason; I48.91 Unspecified atrial fibrillation; I25.10 Atherosclerotic heart disease of native coronary artery without angina pectoris; I10 Essential (primary) hypertension; E55.9 Vitamin D deficiency, unspecified; G47.00 Insomnia, unspecified; E78.5 Hyperlipidemia, unspecified; K21.9 Gastro-esophageal reflux disease without esophagitis; F17.200 Nicotine dependence, unspecified, uncomplicated; F14.10 Cocaine abuse, uncomplicated; Z79.899 Other long term (current) drug therapy

== ENCOUNTER 2025-01-18 00:23 | Inpatient (IN) | payer MEDICARE, OTHER ==
[~2025-01-18] VITALS: Ht 175.3 cm; Wt 70.5 kg
[2025-01-18] VITALS (12 sets, daily range): BP systolic 123–155; BP diastolic 63–104; TEMP 96.8–98.3; O2SAT 92–98
[~2025-01-18 00:23] MED LIST changes: -FLUT1BLS2 IH; +FLUT1BLS2 INH; +LEVO1TAB40 PO
[2025-01-18 01:00] LABS: HEMATOCRIT 46.3 % (42.0-52.0); HEMOGLOBIN 15.6 g/dl (13.5-17.5); MEAN CORPUSCULAR HEMOGLOBIN 30.7 pg (27.0-33.0); MEAN CORPUSCULAR HGB CONC 33.7 g/dl (32.0-36.5); MEAN CORPUSCULAR VOLUME 91.1 fl (80.0-96.0); PLATELET COUNT, AUTOMATED 201 10^3/uL (150-450); RED BLOOD COUNT 5.08 10^6/uL (4.30-6.10); WHITE BLOOD COUNT 6.4 10^3/uL (4.0-10.0)
[2025-01-18] MEDS: METOPROLOL TART 25 MG TABLET PO ONE (01:12)
[2025-01-18] MEDS: ASPIRIN 81MG CHEW TABLET PO ONE (01:12)
[2025-01-18] MEDS: METOPROLOL 5 MG/5 ML VIAL IV PRN (01:12)
[2025-01-18 01:31] LABS: CALCIUM LEVEL 8.8 MG/DL (8.3-10.6); CREATININE FOR GFR 1.57 MG/DL (0.70-1.30); GLOMERULAR FILTRATION RATE 46.8 (>42); POTASSIUM SERUM 4.4 MMOL/L (3.5-5.1)
[2025-01-18 01:32] LABS: MB/CK RELATIVE INDEX 1.09 (< OR =4)
[2025-01-18 01:33] LABS: ATYPICAL LYMPH 2 % (0-5); BASOPHILS 1 % (0-1); EOSINOPHILS 1 % (0-3); LYMPHOCYTES 28 % (16-44); MONOCYTES 6 % (0-5); NEUTROPHILS 62 % (28-66)
[2025-01-18 01:34] LABS: ANISOCYTOSIS 1+; PLATELET ESTIMATE NORMAL (NORMAL)
[2025-01-18] MEDS: MORPHINE 4 MG/ML 1ML VIAL IV PRN (01:34)
[2025-01-18 01:46] LABS: INR 1.39; PARTIAL THROMBOPLASTIN TIME 47.4 SECONDS (24.8-34.2); PROTHROMBIN TIME 17.3 SECONDS (12.5-14.5)
[2025-01-18] MEDS ORDERED: ISOVUE-370 76% 100ML VIAL As Ordered ONE (02:07)
[2025-01-18 02:42] LABS: CK-MB VALUE MASS 1.1 NG/ML (<3.6)
[2025-01-18 02:44] LABS: MB/CK RELATIVE INDEX 1.23 (< OR =4)
[2025-01-18] MEDS: FUROSEMIDE 40MG/4ML VIAL IV ONE (03:42)
[2025-01-18] MEDS ORDERED: FUROSEMIDE 40MG/4ML VIAL IV SCH ×2 (04:00→09:00)
[2025-01-18] MEDS ORDERED: FURO20TA2 PO (05:12)
[2025-01-18] MEDS ORDERED: PRAD150C6 PO (05:12)
[2025-01-18] MEDS ORDERED: EQ HPAD EXT (05:16)
[2025-01-18] MEDS ORDERED: HYDR25OIN TOP (05:16)
[2025-01-18] MEDS ORDERED: HOME MED LIST COMPLETE! XX SCH (05:20)
[2025-01-18] MEDS ORDERED: NITROGLYCERIN/D5W 100MCG/ML 25 MG in IV 1 EA IV SCH (06:00)
[2025-01-18] MEDS ORDERED: NITROGLYCERIN 2% OINT 1 GM *U/D* PKT TOP SCH (06:00)
[2025-01-18 06:02] LABS: D-DIMER QUANT < 0.27 ug/mL (<0.5)
[2025-01-18 06:08] LABS: MAGNESIUM LEVEL 1.8 MG/DL (1.8-2.4); PHOSPHORUS LEVEL 3.5 MG/DL (2.4-5.1)
[2025-01-18] MEDS: ENOXAPARIN 80MG/0.8ML SYRINGE (J1650 PER 10MG) SC SCH (06:46)
[2025-01-18] MEDS ORDERED: CALCIUM CARBONATE 500 MG CHEW U/D PO PRN (07:40)
[2025-01-18] MEDS: NITROGLYCERIN 0.4MG SUBL TABLET SL PRN (07:53)
[2025-01-18] MEDS: DIGOXIN INJ 0.5 MG/2 ML AMP IV ONE (08:14)
[2025-01-18] MEDS ORDERED: METOPROLOL TART 25 MG TABLET PO SCH (09:00)
[2025-01-18] MEDS ORDERED: **hydrALAZINE** 10 MG TAB PO SCH (09:00)
[2025-01-18] MEDS ORDERED: ASPIRIN 325 MG TAB PO SCH (09:00)
[2025-01-18] MEDS ORDERED: dilTIAZem 120MG **CD** CAPSULE PO SCH (09:00)
[2025-01-18] MEDS: VITAMIN D 1,000 INTERNATIONAL UNITS TABLET PO SCH (09:02)
[2025-01-18] MEDS: DABIGATRAN ETEXILATE 75 MG CAP (PRADAXA) PO SCH (09:02)
[2025-01-18] MEDS: TOPIRAMATE (TopAMAX) 100 MG TAB PO SCH (09:02)
[2025-01-18] MEDS: OMEPRAZOLE 20MG CAP PO SCH (09:02)
[2025-01-18] MEDS ORDERED: PILL CUTTER 1 EACH XX ONE (09:04)
[2025-01-18] MEDS: ROSUVASTATIN 10 MG TAB (CRESTOR) PO SCH (09:05)
[2025-01-18] MEDS: FUROSEMIDE 40MG/4ML VIAL IV SCH (09:06)
[2025-01-18] MEDS: MAG SULF 1GM/100ML (MAG RUN) 1 GM in IV 1 EA IV SCH (11:34)
[2025-01-18] MEDS: ADVAIR HFA 115/21MCG INHALER INH SCH (11:45)
[2025-01-18 12:09] LABS: AMPHETAMINES LEVEL URINE NEGATIVE (NEGATIVE)
[2025-01-18 12:10] LABS: BARBITURATES URINE NEGATIVE (NEGATIVE); BENZODIAZEPINES URINE NEGATIVE (NEGATIVE); METHADONE URINE NEGATIVE (NEGATIVE); OPIATES URINE NEGATIVE (NEGATIVE)
[2025-01-18 12:11] LABS: CANNABINOIDS URINE NEGATIVE (NEGATIVE); PHENCYCLIDINE URINE NEGATIVE (NEGATIVE)
[2025-01-18 12:14] LABS: COCAINE METABOLITE URINE POSITIVE (NEGATIVE)
[2025-01-18] MEDS: DIGOXIN INJ 0.5 MG/2 ML AMP IV SCH (14:24)
[2025-01-18 17:09] LABS: ALBUMIN 2.7 G/DL (3.2-5.2); CALCIUM LEVEL 8.8 MG/DL (8.3-10.6); CREATININE FOR GFR 1.54 MG/DL (0.70-1.30); GLOMERULAR FILTRATION RATE 47.9 (>42); MAGNESIUM LEVEL 2.4 MG/DL (1.8-2.4); PHOSPHORUS LEVEL 3.2 MG/DL (2.4-5.1); POTASSIUM SERUM 3.6 MMOL/L (3.5-5.1)
[2025-01-18] MEDS: ATORVASTATIN 20 MG TAB PO SCH (20:45)
[2025-01-18] MEDS: PRAZOSIN 1 MG CAP PO SCH (20:45)
[2025-01-18] MEDS: traZODone 50 MG TAB PO SCH (20:45)
[2025-01-19 04:01] VITALS: BP 123/76; TEMP 98.3; O2SAT 90
[2025-01-19 04:46] LABS: HEMATOCRIT 42.7 % (42.0-52.0); HEMOGLOBIN 14.3 g/dl (13.5-17.5); MEAN CORPUSCULAR HEMOGLOBIN 29.9 pg (27.0-33.0); MEAN CORPUSCULAR HGB CONC 33.5 g/dl (32.0-36.5); MEAN CORPUSCULAR VOLUME 89.3 fl (80.0-96.0); PLATELET COUNT, AUTOMATED 171 10^3/uL (150-450); RED BLOOD COUNT 4.78 10^6/uL (4.30-6.10); WHITE BLOOD COUNT 5.6 10^3/uL (4.0-10.0)
[2025-01-19 05:01] LABS: CHOLESTEROL RISK RATIO 4.3 (<5); LDL CHOLESTEROL 84.8 MG/DL (<100)
[2025-01-19 07:37] VITALS: BP 134/60; TEMP 97.2; O2SAT 98
[2025-01-19] MEDS: FUROSEMIDE 40MG/4ML VIAL IV SCH (08:33)
[2025-01-19 11:53] VITALS: BP 120/62; TEMP 97.5; O2SAT 95
[2025-01-19 15:29] VITALS: BP 124/61; TEMP 98.4
[2025-01-19 19:01] LABS: CREATININE FOR GFR 1.47 MG/DL (0.70-1.30); GLOMERULAR FILTRATION RATE 50.7 (>42); MAGNESIUM LEVEL 1.8 MG/DL (1.8-2.4); POTASSIUM SERUM 3.5 MMOL/L (3.5-5.1)
[2025-01-19 19:22] LABS: DIGOXIN LEVEL 0.3 NG/ML (0.8-2.0)
[2025-01-19 20:03] VITALS: BP 130/62; O2SAT 96
[2025-01-19] MEDS: DIGOXIN 0.125 MG TAB PO SCH (20:07)
[2025-01-19 20:20] VITALS: TEMP 97.7
[2025-01-20] VITALS (8 sets, daily range): BP systolic 115–150; BP diastolic 58–77; PULSE 75–85; TEMP 97.3–98.3; O2SAT 96–98
[2025-01-20 05:30] LABS: CALCIUM LEVEL 7.8 MG/DL (8.3-10.6); CREATININE FOR GFR 1.48 MG/DL (0.70-1.30); GLOMERULAR FILTRATION RATE 50.3 (>42); MAGNESIUM LEVEL 1.7 MG/DL (1.8-2.4); POTASSIUM SERUM 3.7 MMOL/L (3.5-5.1)
[2025-01-20] MEDS: DAPAGLIFLOZIN PROPANEDIOL 10MG TABLET (FARXIGA) PO SCH (09:00)
[2025-01-20 09:34] LABS: BASO % 0.6 % (0.0-1.0); EOS % 0.8 % (0.0-3.0); HEMATOCRIT 42.7 % (42.0-52.0); HEMOGLOBIN 14.3 g/dl (13.5-17.5); LYMPH # 1.3 10^3/uL (1.5-5.0); LYMPH % 25.6 % (24.0-44.0); MEAN CORPUSCULAR HEMOGLOBIN 30.3 pg (27.0-33.0); MEAN CORPUSCULAR HGB CONC 33.5 g/dl (32.0-36.5); MEAN CORPUSCULAR VOLUME 90.5 fl (80.0-96.0); MONO # 0.6 10^3/uL (0.0-0.8); MONO % 11.2 % (2.0-8.0); NEUTROPHILS # 3.2 10^3/uL (1.5-8.5); NEUTROPHILS % 61.6 % (36.0-66.0); PLATELET COUNT, AUTOMATED 173 10^3/uL (150-450); RED BLOOD COUNT 4.72 10^6/uL (4.30-6.10); WHITE BLOOD COUNT 5.1 10^3/uL (4.0-10.0)
[2025-01-20] MEDS: FUROSEMIDE 100MG/10ML VIAL IV SCH (09:45)
[2025-01-20] MEDS: MAGNESIUM OXIDE 400MG TAB (MAG-OX) PO SCH (09:46)
[2025-01-20] MEDS ORDERED: MAG SULF 1GM/100ML (MAG RUN) 1 GM in IV 1 EA IV ONE (10:00)
[2025-01-20 10:11] LABS: ALBUMIN 2.3 G/DL (3.2-5.2); BILIRUBIN,TOTAL 0.7 MG/DL (0.3-1.2); CREATININE FOR GFR 1.37 MG/DL (0.70-1.30); GLOMERULAR FILTRATION RATE 55.2 (>42); POTASSIUM SERUM 3.8 MMOL/L (3.5-5.1); TOTAL PROTEIN 5.7 G/DL (5.7-8.2)
[2025-01-20] MEDS ORDERED: MAGNESIUM SULFATE IN WATER 2 GM in IV 1 EA IV STA (13:56)
[2025-01-20] MEDS: MAG SULF 1GM/100ML (MAG RUN) X2 IV SCH (15:57)
[2025-01-20 18:51] LABS: CALCIUM LEVEL 8.7 MG/DL (8.3-10.6); CREATININE FOR GFR 1.5 MG/DL (0.70-1.30); GLOMERULAR FILTRATION RATE 49.5 (>42); MAGNESIUM LEVEL 2.7 MG/DL (1.8-2.4); POTASSIUM SERUM 4.1 MMOL/L (3.5-5.1)
[2025-01-20] MEDS: CARVedilol 3.125 MG TAB PO SCH (20:24)
[2025-01-21 03:45] VITALS: BP 111/55; TEMP 97.6; O2SAT 98
[2025-01-21 04:00] VITALS: BP 111/55; TEMP 97.6; O2SAT 98
[2025-01-21 06:28] LABS: CALCIUM LEVEL 8.4 MG/DL (8.3-10.6); CREATININE FOR GFR 1.45 MG/DL (0.70-1.30); GLOMERULAR FILTRATION RATE 51.5 (>42); MAGNESIUM LEVEL 2.2 MG/DL (1.8-2.4); POTASSIUM SERUM 4.4 MMOL/L (3.5-5.1)
[2025-01-21 08:20] VITALS: BP_SYST 113; BP_SYST 116; BP_DIAS 71; BP_DIAS 87; TEMP 97.9; O2SAT 98
[2025-01-21 09:49] VITALS: BP 116/71
[2025-01-21] MEDS ORDERED: CARV3.12 PO (11:47)
[2025-01-21] MEDS ORDERED: NITR4TASL SL (11:47)
[2025-01-21] MEDS ORDERED: DIGO0.123 PO (11:47)
[2025-01-21] MEDS ORDERED: MAGN400T33 PO (11:47)
[2025-01-21] MEDS ORDERED: FARX1TAB3 PO (11:47)
[2025-01-21] MEDS ORDERED: TORS10TA3 PO (11:51)
[2025-01-21 12:27] VITALS: BP 113/72; TEMP 98.5; O2SAT 97
== END 2025-01-21 14:13 | disposition home or self-care (01) | DRG 291 ==
LOC: M ED 00:23 → M ED INP 03:57 → M PCU 06:26 → OBSVTOIN 08:25
PROVIDERS: ADMIT Student in an Organized Health Care Education/Training Program; ATTEND Student in an Organized Health Care Education/Training Program
DX: I13.0 Hypertensive heart and chronic kidney disease with heart failure and stage 1 through stage 4 chronic kidney disease, or unspecified chronic kidney disease (principal); I50.23 Acute on chronic systolic (congestive) heart failure; I48.91 Unspecified atrial fibrillation; J44.9 Chronic obstructive pulmonary disease, unspecified; K21.9 Gastro-esophageal reflux disease without esophagitis; F43.10 Post-traumatic stress disorder, unspecified; N18.30 Chronic kidney disease, stage 3 unspecified; E78.5 Hyperlipidemia, unspecified; F14.920 Cocaine use, unspecified with intoxication, uncomplicated; R13.10 Dysphagia, unspecified; G47.00 Insomnia, unspecified; Z79.01 Long term (current) use of anticoagulants; Z86.711 Personal history of pulmonary embolism; Z51.5 Encounter for palliative care; F10.10 Alcohol abuse, uncomplicated; F17.210 Nicotine dependence, cigarettes, uncomplicated; Z79.899 Other long term (current) drug therapy; Z86.718 Personal history of other venous thrombosis and embolism; E53.8 Deficiency of other specified B group vitamins